=== PATIENT | female | born 1985 | race American Indian/Alaskan Native ===

== ENCOUNTER 2019-08-27 15:32 | Inpatient (IN) | payer MEDICAID ==
[2019-08-27] MEDS ORDERED: Magnesium Sulfate/Water 4 GM in Premix Bag 1 BAG IV ONE (16:04)
[2019-08-27] MEDS ORDERED: Labetalol 100 MG/20 ML MDV IVPUSH PRN (16:06)
[2019-08-27] MEDS ORDERED: Lactated Ringers 1,000 ML IV SCH ×3 (16:30→17:15)
[2019-08-27] MEDS ORDERED: Magnesium Sulfate/Water 2 GM in Premix Bag 1 BAG IV PRN (16:49)
[2019-08-27] MEDS ORDERED: Magnesium Sulfate/Water 50 ML ONE (16:52)
[2019-08-27] MEDS ORDERED: Sodium Chloride 0.9% 10 ML Syringe FLUSH PRN (17:05)
[2019-08-27] MEDS ORDERED: Tranexamic Acid 1,000 MG in Sodium Chloride 0.9% 100 ML IV PRN ×2 (17:05→20:12)
[2019-08-27] MEDS ORDERED: Citric Acid/Sodium Citrate Solution 30 ML Cup PO ONE (17:05)
[2019-08-27] MEDS ORDERED: ceFAZolin 2 GM in Premix Bag 1 BAG IV ONE (17:05)
[2019-08-27] MEDS: [UNRECOGNIZED DRUG - OTHER] IV SCH (17:08)
[2019-08-27] MEDS: MAGNESIUM SULFATE IV SCH (17:08)
[2019-08-27] MEDS ORDERED: Oxytocin/Normal Saline 30 UNIT/500 ML BAG IV SCH (17:15)
[2019-08-27] MEDS ORDERED: Oxytocin/Normal Saline 60 UNIT/1,000 ML BAG ONE (17:30)
[2019-08-27] MEDS ORDERED: Clindamycin Phosphate 900 MG in Sodium Chloride 0.9% 100 ML IV ONE (17:58)
--- NOTE | 2019-08-27 18:58 | HP ---
CHIEF COMPLAINT: The patient sent from clinic with elevated blood pressures. HISTORY OF PRESENT ILLNESS: The patient is a 3, para 2-1-0-3, currently at 38-0/7 weeks of her intrauterine . The patient presented to the clinic today for her routine obstetrical care appointment and was found to have elevated blood pressures, therefore, sent over to the hospital for further evaluation and management with knowledge that we may be proceeding with section. Upon arrival, blood pressure here 182/118, recheck 185/124. Once she was laid on her left side, and blood pressure taken with a large cuff on the right arm, it was 200/116. The patient is also complaining of blurry vision and headache. No chest pain. No shortness of breath. No right upper quadrant pain. She has had good movement. No vaginal bleeding or leakage of fluid. Uncertain if she has had any increased swelling. No history of preeclampsia in her prior pregnancies. First was done for twins at 28 weeks' gestation. Second was after 40 weeks' gestation, elective repeat. No complications noted with that surgery. OBSTETRICAL HISTORY: 09/16/2009 at 28 weeks' gestation, delivered male infants, one weighing 1361 g, the second one weighing 1247 g. Next 08/10/2011, delivered at 40 weeks' gestation, repeat , baby weighed 3175 g. LABS: She has GBS negative. Hepatitis C negative. Hepatitis B negative. Blood type A positive. Antibody screen positive for anti-Clayton A. RPR nonreactive. Rubella nonimmune. UDS positive for THC. Gonorrhea and chlamydia were negative. Urine culture was contaminated. Hemoglobin was 11.8, hematocrit 34.5, platelets 261. Wet prep was negative. Glucose tolerance test was normal. PAST MEDICAL HISTORY: 1. Chickenpox as a child. 2. LSIL on Pap smear in 2010. 3. Marijuana use. 4. delivery of twins. 5. Menarche at age 13. Menses every 30 days with 5 days of flow typically, but recently was undergoing evaluation for secondary amenorrhea. Only had one period in December since her last delivery and never got in to see the infant lead teacher. 6. History of Staphylococcus aureus infection. 7. Tattoos and ear piercings. Denies IV drug use and prior blood transfusions. 8. Tobacco abuse. PAST SURGICAL HISTORY: Primary low transverse section in 09/2009, elective repeat in 08/2011, laparoscopic cholecystectomy in 01/2012, LEEP of her cervix in 12/2009. FAMILY HISTORY: Mother alive with heart disease, high cholesterol, and hypertension. Father is . One brother and one sister, each alive and well. Maternal grandmother alive with COPD and lots of other medical problems. Remainder of the grandparents are . No history of any defects, cystic fibrosis, anesthesia reactions, bleeding or clotting disorders, or chromosomal abnormalities. SOCIAL HISTORY: The patient is down to smoking 3 to 4 cigarettes a day. Last use of marijuana was reported to be just prior to her first care visit. After that, she has had negative urine drug screen. She lives with her significant other, Tito, and their 3 children as well as Tito's mother. She is currently working at [employer]. Reportedly, he is healthy. REVIEW OF SYSTEMS: As noted under the HPI. No fever, chills, chest pain, shortness of breath, diarrhea, constipation, new skin rash or lesions, or other issues. OBJECTIVE: General: Pleasant well-appearing 34-year-old female, no acute at this time. She has had start of magnesium sulfate and also given 20 mg of IV labetalol. Vital Signs: Currently, pulse is 66, blood pressure 157/81. She is afebrile. Respiratory rate of 18. HEENT: Grossly unremarkable. Neck: Supple without adenopathy. Heart: Regular without murmur. Lungs: Clear to auscultation bilaterally with good chest expansion. Abdomen: Gravid, soft, nontender. Baby palpates vertex. [place] not showing any contractions. Baseline heart rate 135 beats per minute. Moderate beat-to- beat variability. Accelerations noted. Cervix deferred as it is irrelevant at this time. Extremities: Trace edema. No erythema or tenderness. Neurological: 1+ reflexes. No clonus. LABORATORY: Hemoglobin 12.4, platelets 223. BUN, creatinine, uric acid, AST, ALT, and LDH all negative. Urinalysis; greater than 300 of protein on dipstick, trace ketones, and occult blood. Urine drug screen is negative. Protein- creatinine ratio is still pending. ASSESSMENT: 1. Severe preeclampsia. 2. A 38-0/7 weeks' intrauterine . 3. History of sections x2. 4. History of delivery of twins. 5. Smoker. 6. History of THC abuse. 7. Late and insufficient care. 8. Blood type A positive, rubella immune, group B strep negative. 9. Positive red cell antibody for anti-Clayton A. 10.Amoxicillin allergy. PLAN: The patient will be taken to the operating room for a repeat section. She has been given appropriate consent. Details will be outlined in the operative report. We will be using clindamycin as our preoperative antibiotic because the reaction that she had with the amoxicillin is really uncertain, and we are already having enough risk factors. [facility] /[id number]
[2019-08-27 19:54] LABS: CHLORIDE,CL 104 mmol/L (101-111)
[2019-08-27] MEDS ORDERED: Acetaminophen 325 MG Tab PO PRN (20:12)
[2019-08-27] MEDS ORDERED: Methylergonovine 0.2 MG/1 ML Amp IM PRN (20:12)
[2019-08-27] MEDS ORDERED: Misoprostol 400 MCG (4 X 100 MCG TAB) RECTAL PRN (20:12)
[2019-08-27] MEDS ORDERED: ePHEDrine 50 MG/ML SDV IVPUSH PRN (20:12)
[2019-08-27] MEDS ORDERED: Naloxone 2 MG/2 ML Syringe IVPUSH PRN (20:12)
[2019-08-27] MEDS ORDERED: Ondansetron 4 MG/2 ML SDV IV PRN (20:12)
[2019-08-27] MEDS ORDERED: Acetaminophen/oxyCODONE 325-5 MG Tab PO PRN ×2 (20:12)
[2019-08-27] MEDS ORDERED: Carboprost Tromethamine 250 MCG/1 ML Amp IM PRN (20:12)
[2019-08-27] MEDS: Lactated Ringers 1,000 ML IV SCH (21:30)
[2019-08-27 21:48] LABS: SODIUM,NA 134 mmol/L (135-145)
[2019-08-27] MEDS ORDERED: Calcium Gluconate 10% 1 GM/10 ML SDV ONE (22:12)
[2019-08-27] MEDS: diphenhydrAMINE 50 MG/ML SDV IVPUSH PRN (22:18)
[2019-08-27] MEDS: Simethicone 80 MG Tab.Chew PO SCH (22:19)
[2019-08-27] MEDS: Docusate Sodium 100 MG Cap PO PRN (22:21)
[2019-08-27] MEDS ORDERED: Labetalol 100 MG Tab PO SCH (22:45)
[2019-08-27] MEDS: hydrALAZINE 25 MG Tab PO PRN (23:04)
[2019-08-28] MEDS ORDERED: Ketorolac 30 MG/ML SDV IVPUSH SCH
[2019-08-28] MEDS ORDERED: hydrALAZINE 20 MG/ML SDV IVPUSH ONE (00:26)
[2019-08-28] MEDS: Ketorolac 30 MG/ML SDV IVPUSH SCH ×3 (01:28→12:58)
--- NOTE | 2019-08-28 03:07 | DEL ---
DATE: 08/27/2019 PREPROCEDURE DIAGNOSES: 1. Severe preeclampsia. 2. Thirty-eight and 0/7 weeks' intrauterine . 3. History of section x2. 4. History of delivery twins. 5. Smoker. 6. History of THC abuse. 7. Late and insufficient care. 8. Blood type A positive, rubella immune, group B strep negative. 9. Positive red cell antibody for anti-Clayton A. 10.Amoxicillin allergy. BRIEF HISTORY: A 34-year-old patient with the above-listed diagnoses, presented to the clinic today for routine care visit, complaining of headache and blurry vision. My nurse found her blood pressures to be elevated and sent her directly to Labor and Delivery for further evaluation. Here, her pressures were in the 170s and 180s/100s, and a 3rd blood pressure was maximum at 200/116. She was given 20 mg of IV labetalol and started on magnesium sulfate while we awaited preeclampsia labs and ultimately she did rule in for preeclampsia with a protein-creatinine ratio of 0.74. Urine drug screen negative. Remainder of the other [facility] labs were negative, and initial hemoglobin normal at 12.4, and platelets normal 223. Preparations were made for section; however, with the patient's known anti-Clayton antibody, we were also trying to check with blood bank to make sure that we would be able to transfuse if necessary because of the abnormal antibody. CONSENT: Discussed with the patient and her significant other indications risks, benefits, and alternatives to repeat section for severe preeclampsia. Discussed with her the indications were that she needed to be delivered sooner rather than later in order to reduce risk of transition to eclampsia or suffering other consequences of the preeclampsia. Discussed with her risk of bleeding and potential for transfusion reaction, especially with her abnormal antibody, and that that may need to be withheld and she may need to be transferred to a higher level of care if we did not have the appropriate blood for her here. Discussed risk of injury to internal organs and adjacent structures including but not limited to bowel, bladder, fallopian tubes, ovaries, even potential injury to the baby and potential for complications for mother and/or baby that are unanticipated or require transfer to a higher level of care, even remote risk of . The patient consented and had her questions answered, and appropriate forms were signed and can be found on the chart. DETAILS OF PROCEDURE: The patient taken to the operating room and spinal anesthesia was obtained with some difficulty due to severe edema on the patient's back making landmarks difficult to palpate, but it was an appropriate spinal. She was laid in the dorsal supine position with leftward tilt and Bar[place] indwelling catheter was placed. She was prepped and draped in a normal sterile fashion and Pfannenstiel skin incision made at 1829 and carried down to the underlying fascia with cautery and dissection, being careful to control any bleeders. The fascia was incised in the midline with cautery and fascial incision extended bilaterally using Beebe scissors. Superior fascial edge was grasped with Priscilla's, tented up, and rectus muscles dissected off bluntly and with cautery. Inferior fascial edge then grasped with the Priscilla's, tented up, and rectus muscles dissected off inferiorly as well in similar fashion. The peritoneal muscles were then with blunt finger dissection and peritoneal cavity entered with blunt finger dissection and extended bilaterally with traction. Small thin adhesions noted to the uterus, which were taken down with cautery, and then Reji O retractor was placed and appropriate incision site over the prior uterine scar was made with scalpel, and this was extended using Theodore method. Amniotic fluid sac was then ruptured with Allis clamp and baby's head brought up through the hysterotomy site, followed thereafter by the remainder of the infant's body, and baby was delivered at 1838 hours. Uterus was then cleared of all clots and debris, and trailing membranes removed. Hysterotomy site closed with a running locked stitch of 0 Vicryl in the usual fashion and found to be hemostatic. Reji retractor was removed. Hemostasis of the hysterotomy site verified. Pericolic gutters were cleared of all clots and debris, and hysterotomy site reinspected and remained intact. The rectus muscles were brought together at the base with a loose [id number] stitch and then this layer was irrigated and cleaned. The fascial layer was then closed with a running stitch of 0 looped PDS in the usual fashion. Subcutaneous tissue was then irrigated, cleared of any clots and debris, and skin closed with cory. Notable complication during the procedure was, around time of delivery of the placenta, the patient had complaints of difficulties with breathing, chest pressure, feeling nausea, vomiting, and had developed rapid onset of ventricular bradycardia, with an ultimate rate of 22 at the lowest, it gradually increased back up to 33, and half an ampule of epinephrine was given. The heart rate after having been down for about 2 minutes, over the next minute the heart rate came up to around 50, and the second half of epinephrine was given, and the heart rate was then over 60 and holding well. During the initial bradycardia event, blood pressure was 116/68. After the 1 ampule total of epinephrine, the blood pressure was up at 137/117. The patient received some supplemental oxygen and reassurance. She ultimately was able to maintain her vital signs without any further interventions and was reporting less difficulties with tightness in her throat, chest pain, shortness of breath, and recovered quite well thereafter. ESTIMATED BLOOD LOSS: 400 mL. URINE OUTPUT: 180 mL, clear. FLUIDS: 2300 mL of lactated Ringer's, 450 mL of Pitocin. ADDITIONAL MEDICATIONS: 1 ampule of epinephrine, dose of Zofran, and 2 mg of Versed after her bradycardic event. COMPLICATIONS: Unexpected bradycardia, at this time no specific etiology has been found. We discussed multiple possible causes, however, most of those such as fluid embolism, pulmonary embolism, flash pulmonary edema, anaphylaxis all would cause tachycardia rather than bradycardia, leading suspicion at this time as an anesthetic reaction. DISPOSITION: The patient to be taken to the PACU. We will continue to monitor her very closely and get additional consultations as appropriate with [facility] in [place] and hospitalist here at the facility. FINDINGS: Normal internal female anatomy. Uterus, ovaries, and tubes. The baby is a term-appearing female with normal exam and Estonian spot noted. scores and weights are currently pending. [facility] /[id number]
[2019-08-28] MEDS: MAGNESIUM SULFATE IV SCH ×2 (03:09→13:07)
[2019-08-28] MEDS: [UNRECOGNIZED DRUG - OTHER] IV SCH ×2 (03:09→13:07)
[2019-08-28] MEDS: Lactated Ringers 1,000 ML IV SCH ×2 (03:12→20:06)
--- NOTE | 2019-08-28 03:30 | CONS ---
SERVICE DATE: 08/27/2019 REASON FOR CONSULT: Bradycardia, hypotension. HISTORY OF PRESENTING ILLNESS: Mrs. Varinder Krishnamurthy is a 34-year-old female with no significant past medical history. She is a 3, para 2-1-0-3, currently at 38-0/7 weeks of intrauterine . The patient had x2 in the past, a twin first time and then a second boy both of which had C-sections in the past, but no complications noted from her previous . She was initially evaluated in the clinic today for obstetric care and was noted to have preeclampsia with uncontrolled hypertension and so the patient was admitted and is status post . During the surgical procedure, the patient had a brief episode of hypotension and bradycardia where her heart rate was down to 20 to 22 for 2 to 3 minutes and then her blood pressure was down to 70 systolic. The patient was given half an amp of epinephrine after which her heart rate slightly improved, then she received another half of epinephrine after which her heart rate improved and blood pressure improved and since then she is able to sustain her heart rate and blood pressure. The patient received IV labetalol 3 hours prior to onset of the symptoms for controlling her blood pressure and so she received magnesium sulfate during this procedure for better control of the blood pressure. Postprocedure, the patient remains hemodynamically stable. The patient claims that during the surgical procedure, she felt like a little short of breath, a blockage in her throat, but for a brief time she also felt palpitations but denied any loss of consciousness, denied any dizziness, denied any similar complaints in the past. At this time, the patient denies any ongoing chest pains. No shortness of breath. No abdominal pain. No nausea. No vomiting. No diarrhea. No fevers or chills in the last few days. The patient did not have any complications with her C-sections in the past. The patient denied any history of chest pains on exertion. No history of dyspnea on exertion. No history of orthopnea or paroxysmal nocturnal dyspnea. The patient denied any history of hematemesis, hematochezia, or melenic stools. Normal bowel and bladder habits otherwise. REVIEW OF SYSTEMS: A complete review of system including skin, ear, nose and throat, cardiovascular system, respiratory system, gastrointestinal system, genitourinary system, hematology, oncology, neurology were all evaluated and were negative except for the above-said notes. PAST MEDICAL HISTORY: Significant for delivery, history of marijuana use, history of chickenpox when she was a kid, secondary amenorrhea, and Staph aureus infection PAST SURGICAL HISTORY: Significant for C-sections low transverse x2, laparoscopy, cholecystectomy, and vaginal cervical LEEP treatment. FAMILY HISTORY: Significant for heart disease, hypertension, and high cholesterol in her mother; and COPD in her maternal grandmother. SOCIAL HISTORY: The patient smokes around 3 to 4 cigarettes a day. No history of alcohol intake. ALLERGIES: The patient noted to have allergies to amoxicillin. HOME MEDICATIONS: Include none. PHYSICAL EXAMINATION: Vital Signs: Blood pressure 120/70, respiratory rate of 14, heart rate of 62. Temperature of 97.2, saturating at 97%. General Appearance: The patient is well oriented to time, place, and person. Follows commands spontaneously. Cardiovascular System: S1, S2 heard with normal intensity. No gallops. Respiratory: Clear to auscultation bilaterally. No wheeze. No crepitations. Abdomen: Soft. Bowel sounds positive. Tenderness from the surgery. No rigidity. No guarding. Extremities: No edema bilateral lower extremities. Neurology: No gross focal neurological deficits. LABORATORY DATA: Labs reviewed. WBC 7, hemoglobin 12.4, hematocrit 37.4, platelet count 223. Sodium 136, potassium 3.8, chloride 104, bicarb 25, BUN 9, creatinine 0.6, glucose 93, magnesium 1.8, AST 16, ALT 13, alkaline phosphatase 191, lactate dehydrogenase 132. Urinalysis: Urine protein greater than 300, negative for leukocytes, negative for nitrites, urine toxicology screen negative. ASSESSMENT: 1. Brief episode of hypotension with bradycardia. 2. Preeclampsia. 3. Status post . PLAN: Brief episode of hypotension and bradycardia. The patient was noted to have a bradycardia with heart rate dropping down to 20s and blood pressure systolic dropping down to 70s, she required an amp of epinephrine to regain the blood pressure. Bradycardia and hypotension lasted only for a brief time around 2 to 3 minutes. currently her blood pressure and heart rate seems to be stabilized. She denies any ongoing chest pains or shortness of breath. Unsure if this is a medication adverse event either with magnesium or with anesthetic agent. She does not have any cardiovascular complaints at this time. Ordered for EKG and a 2D echocardiogram. We will order for chest x-ray and we will follow with the reports. Closely monitor on the Telemetry Unit. Avoid any hypotensive episodes. Keep her hydrated with IV fluids. Maintain euvolemic status. We will closely follow the patient. Unsure if the patient had any vagal episode leading to this bradycardia and hypotension. The patient denied any history of similar complaints in the past. Did not have any complications with C-sections in the past. She denies any chest pains or tachycardia at this time. No indication for PE on vital signs and symptoms. low index for PE. [facility] /[id number]
[2019-08-28] MEDS: diphenhydrAMINE 50 MG/ML SDV IVPUSH PRN (04:12)
[2019-08-28] MEDS: hydrALAZINE 25 MG Tab PO PRN (07:41)
--- NOTE | 2019-08-28 08:33 | PCM.PNPP ---
- General Info Date of Service: 08/28/19 Admission Dx/Problem (Free Text): Post Day Number 1 Patient: Varinder Krishnamurthy Admit Date: 08/27/19 Today's Date: 08/28/19 Post operative Day #1 for rLTCS Subjective: Patient is post op day one from her . She reports her lochia is moderate. She is bottle feeding. She has good. Her nathan has not been removed. She has not been out of bed. She has started advancing her diet. She has no complaints. No acute events overnight, nurses report she has had some labile blood pressures in the 130s over 100s. Patient denies any headaches, blurred vision, abdominal pain, chest pain or shortness of breath. Objective: Vitals reviewed see below General: alert and oriented, no acute distress Lungs: CTAB CV: Heart RRR. Her lower limbs are nontender and have trace edema. Patient has been wearing SCDs Abdomen: Post-. Her incision site is CDI, without cory. Her uterus is firm, nontender at the level of the umbilicus. Skin: is warm and dry, no visible lesions, well perfused Lab Results: RPR: non reactive Rubella: immune GBS:negative Hbs: negative Assessment/Plan: Patient is stable and comfortable she is postoperative day number one status post rLTCS Will continue hydralazine 25mg q 6hrs PO for elevated blood pressures. Continue magnesium for 24 hours post for severe preeclampsia Her postoperative hemoglobin is 12.5. This is not consistent with post operative anemia. She does not have symptoms of anemia. Will closely monitor her I/Os and decrease IVF's when tolerating good PO intake , after this the nathan can be removed when she is up and ambulating well and able to make it relatively pain free to the bathroom. Pain control will be monitored closely along with her incision site for any signs of infection. Her diet will be advanced when she is feeling able to take PO intake with active bowel sounds and passing gas. - Patient Data Vital Signs - Most Recent: Last Vital Signs Temp 96.5 F 08/28/19 06:27 Pulse 80 08/28/19 06:52 Resp 16 08/28/19 02:00 BP 139/100 H 08/28/19 07:41 Pulse Ox 99 08/28/19 06:36 Weight - Most Recent: 239 lb I&O - Last 24 Hours: Intake & Output 08/27/19 08/28/19 08/28/19 22:59 06:59 14:59 Intake Total 339 2681 Output Total 265 1700 Balance 74 981 Lab Results - Last 24 Hours: Laboratory Results - last 24 hr 08/27/19 08/27/19 08/27/19 Range/Units 15:49 16:00 16:00 WBC 7.0 (5.0-10.0) 10^3/uL RBC 4.29 (4.2-5.4) 10^6/uL Hgb 12.4 (12.0-16.0) g/dL Hct 37.4 (37.0-47.0) % MCV 87.2 (80-100) fL MCH 28.9 (27.0-34.0) pg MCHC 33.2 (33.0-35.0) g/dL Plt Count 223 D (150-450) 10^3/uL Sodium (135-145) mmol/L Potassium (3.6-5.0) mmol/L Chloride (101-111) mmol/L Carbon Dioxide (21.0-31.0) mmol/L Anion Gap BUN 9 (7-18) mg/dL Creatinine 0.6 (0.6-1.3) mg/dL Est Cr Clr Drug Dosing TNP Estimated GFR (MDRD) > 60 BUN/Creatinine Ratio Glucose (74-105) mg/dL Uric Acid 4.3 (2.6-7.2) mg/dL Calcium (8.4-10.2) mg/dl Magnesium (1.8-2.5) mg/dL Total Bilirubin (0.2-1.0) mg/dL AST 15 (10-42) IU/L ALT 13 (10-60) IU/L Alkaline Phosphatase (42-121) IU/L Lactate Dehydrogenase 132 (91-180) IU/L Total Protein (6.7-8.2) g/dl Albumin (3.2-5.5) g/dl Globulin Albumin/Globulin Ratio Urine Color (YELLOW) Urine Appearance (CLEAR) Urine pH (5.0-9.0) Ur Specific [place] (1.005-1.030) Urine Protein (NEGATIVE) Urine Glucose (UA) (NEGATIVE) Urine Ketones (NEGATIVE) Urine Occult Blood (NEGATIVE) Urine Nitrite (NEGATIVE) Urine Bilirubin (NEGATIVE) Urine Urobilinogen (0.2-1.0) mg/dL Ur Leukocyte Esterase (NEGATIVE) Ur Random Creatinine 257 mg/dL U Random Total Protein 192 H (0.00-9.9) mg/dL Protein/Creatinin Ratio 0.74 Urine Opiates Screen (NEGATIVE) Ur Oxycodone Screen (NEGATIVE) Urine Methadone Screen (NEGATIVE) Ur Barbiturates Screen (NEGATIVE) U Tricyclic Antidepress (NEGATIVE) Ur Phencyclidine Scrn (NEGATIVE) Ur Amphetamine Screen (NEGATIVE) U Methamphetamines Scrn (NEGATIVE) Urine MDMA Screen (NEGATIVE) U Benzodiazepines Scrn (NEGATIVE) Urine Cocaine Screen (NEGATIVE) U Marijuana (THC) Screen (NEGATIVE) Blood Type Gel Antibody Screen Crossmatch 08/27/19 08/27/19 08/27/19 Range/Units 16:00 16:10 16:10 WBC (5.0-10.0) 10^3/uL RBC (4.2-5.4) 10^6/uL Hgb (12.0-16.0) g/dL Hct (37.0-47.0) % MCV (80-100) fL MCH (27.0-34.0) pg MCHC (33.0-35.0) g/dL Plt Count (150-450) 10^3/uL Sodium (135-145) mmol/L Potassium (3.6-5.0) mmol/L Chloride (101-111) mmol/L Carbon Dioxide (21.0-31.0) mmol/L Anion Gap BUN (7-18) mg/dL Creatinine (0.6-1.3) mg/dL Est Cr Clr Drug Dosing Estimated GFR (MDRD) BUN/Creatinine Ratio Glucose (74-105) mg/dL Uric Acid (2.6-7.2) mg/dL Calcium (8.4-10.2) mg/dl Magnesium (1.8-2.5) mg/dL Total Bilirubin (0.2-1.0) mg/dL AST (10-42) IU/L ALT (10-60) IU/L Alkaline Phosphatase (42-121) IU/L Lactate Dehydrogenase (91-180) IU/L Total Protein (6.7-8.2) g/dl Albumin (3.2-5.5) g/dl Globulin Albumin/Globulin Ratio Urine Color Dark yellow (YELLOW) Urine Appearance Slightly cloudy (CLEAR) Urine pH 6.0 (5.0-9.0) Ur Specific [place] >= 1.030 (1.005-1.030) Urine Protein >=300 H (NEGATIVE) Urine Glucose (UA) Negative (NEGATIVE) Urine Ketones Trace H (NEGATIVE) Urine Occult Blood Trace-intact H (NEGATIVE) Urine Nitrite Negative (NEGATIVE) Urine Bilirubin Small H (NEGATIVE) Urine Urobilinogen 1.0 (0.2-1.0) mg/dL Ur Leukocyte Esterase Negative (NEGATIVE) Ur Random Creatinine mg/dL U Random Total Protein (0.00-9.9) mg/dL Protein/Creatinin Ratio Urine Opiates Screen Negative (NEGATIVE) Ur Oxycodone Screen Negative (NEGATIVE) Urine Methadone Screen Negative (NEGATIVE) Ur Barbiturates Screen Negative (NEGATIVE) U Tricyclic Antidepress Negative (NEGATIVE) Ur Phencyclidine Scrn Negative (NEGATIVE) Ur Amphetamine Screen Negative (NEGATIVE) U Methamphetamines Scrn Negative (NEGATIVE) Urine MDMA Screen Negative (NEGATIVE) U Benzodiazepines Scrn Negative (NEGATIVE) Urine Cocaine Screen Negative (NEGATIVE) U Marijuana (THC) Screen Negative (NEGATIVE) Blood Type A POSITIVE Gel Antibody Screen Positive Crossmatch See Detail 08/27/19 08/27/19 08/28/19 Range/Units 21:12 21:12 06:15 WBC 13.1 H 11.3 H (5.0-10.0) 10^3/uL RBC 3.95 L 4.35 (4.2-5.4) 10^6/uL Hgb 11.4 L 12.5 (12.0-16.0) g/dL Hct 34.7 L 37.9 (37.0-47.0) % MCV 87.8 87.1 (80-100) fL MCH 28.9 28.7 (27.0-34.0) pg MCHC 32.9 L 33.0 (33.0-35.0) g/dL Plt Count 212 251 (150-450) 10^3/uL Sodium 134 L (135-145) mmol/L Potassium 4.0 (3.6-5.0) mmol/L Chloride 104 (101-111) mmol/L Carbon Dioxide 22.0 (21.0-31.0) mmol/L Anion Gap 12.0 BUN 7 (7-18) mg/dL Creatinine 0.6 (0.6-1.3) mg/dL Est Cr Clr Drug Dosing 123.68 Estimated GFR (MDRD) > 60 BUN/Creatinine Ratio 11.66 Glucose 82 (74-105) mg/dL Uric Acid (2.6-7.2) mg/dL Calcium 7.6 L (8.4-10.2) mg/dl Magnesium 4.0 H (1.8-2.5) mg/dL Total Bilirubin 0.3 (0.2-1.0) mg/dL AST 19 (10-42) IU/L ALT 14 (10-60) IU/L Alkaline Phosphatase 166 H (42-121) IU/L Lactate Dehydrogenase (91-180) IU/L Total Protein 5.5 L (6.7-8.2) g/dl Albumin 2.1 L (3.2-5.5) g/dl Globulin 3.4 Albumin/Globulin Ratio 0.62 Urine Color (YELLOW) Urine Appearance (CLEAR) Urine pH (5.0-9.0) Ur Specific [place] (1.005-1.030) Urine Protein (NEGATIVE) Urine Glucose (UA) (NEGATIVE) Urine Ketones (NEGATIVE) Urine Occult Blood (NEGATIVE) Urine Nitrite (NEGATIVE) Urine Bilirubin (NEGATIVE) Urine Urobilinogen (0.2-1.0) mg/dL Ur Leukocyte Esterase (NEGATIVE) Ur Random Creatinine mg/dL U Random Total Protein (0.00-9.9) mg/dL Protein/Creatinin Ratio Urine Opiates Screen (NEGATIVE) Ur Oxycodone Screen (NEGATIVE) Urine Methadone Screen (NEGATIVE) Ur Barbiturates Screen (NEGATIVE) U Tricyclic Antidepress (NEGATIVE) Ur Phencyclidine Scrn (NEGATIVE) Ur Amphetamine Screen (NEGATIVE) U Methamphetamines Scrn (NEGATIVE) Urine MDMA Screen (NEGATIVE) U Benzodiazepines Scrn (NEGATIVE) Urine Cocaine Screen (NEGATIVE) U Marijuana (THC) Screen (NEGATIVE) Blood Type Gel Antibody Screen Crossmatch 08/28/19 Range/Units 06:15 WBC (5.0-10.0) 10^3/uL RBC (4.2-5.4) 10^6/uL Hgb (12.0-16.0) g/dL Hct (37.0-47.0) % MCV (80-100) fL MCH (27.0-34.0) pg MCHC (33.0-35.0) g/dL Plt Count (150-450) 10^3/uL Sodium (135-145) mmol/L Potassium 4.3 (3.6-5.0) mmol/L Chloride (101-111) mmol/L Carbon Dioxide (21.0-31.0) mmol/L Anion Gap BUN (7-18) mg/dL Creatinine (0.6-1.3) mg/dL Est Cr Clr Drug Dosing Estimated GFR (MDRD) BUN/Creatinine Ratio Glucose (74-105) mg/dL Uric Acid (2.6-7.2) mg/dL Calcium 7.6 L (8.4-10.2) mg/dl Magnesium 5.8 H (1.8-2.5) mg/dL Total Bilirubin (0.2-1.0) mg/dL AST (10-42) IU/L ALT (10-60) IU/L Alkaline Phosphatase (42-121) IU/L Lactate Dehydrogenase (91-180) IU/L Total Protein (6.7-8.2) g/dl Albumin (3.2-5.5) g/dl Globulin Albumin/Globulin Ratio Urine Color (YELLOW) Urine Appearance (CLEAR) Urine pH (5.0-9.0) Ur Specific [place] (1.005-1.030) Urine Protein (NEGATIVE) Urine Glucose (UA) (NEGATIVE) Urine Ketones (NEGATIVE) Urine Occult Blood (NEGATIVE) Urine Nitrite (NEGATIVE) Urine Bilirubin (NEGATIVE) Urine Urobilinogen (0.2-1.0) mg/dL Ur Leukocyte Esterase (NEGATIVE) Ur Random Creatinine mg/dL U Random Total Protein (0.00-9.9) mg/dL Protein/Creatinin Ratio Urine Opiates Screen (NEGATIVE) Ur Oxycodone Screen (NEGATIVE) Urine Methadone Screen (NEGATIVE) Ur Barbiturates Screen (NEGATIVE) U Tricyclic Antidepress (NEGATIVE) Ur Phencyclidine Scrn (NEGATIVE) Ur Amphetamine Screen (NEGATIVE) U Methamphetamines Scrn (NEGATIVE) Urine MDMA Screen (NEGATIVE) U Benzodiazepines Scrn (NEGATIVE) Urine Cocaine Screen (NEGATIVE) U Marijuana (THC) Screen (NEGATIVE) Blood Type Gel Antibody Screen Crossmatch Med Orders - Current: Current Medications Acetaminophen (Tylenol) 650 mg PO Q6H PRN PRN Reason: mild pain or fever Carboprost Tromethamine (Hemabate Ds) 250 mcg IM ONETIME PRN PRN Reason: Bleeding Diphenhydramine HCl (Benadryl) 25 mg IVPUSH Q6H PRN PRN Reason: Itching or Nausea Last Admin: 08/28/19 04:12 Dose: 25 mg Docusate Sodium (Colace) 100 mg PO Q12H PRN PRN Reason: Constipation Last Admin: 08/27/19 22:21 Dose: 100 mg Ephedrine Sulfate (Ephedrine Sulfate) 5 mg IVPUSH SEECOMMENT PRN PRN Reason: Other Hydralazine HCl (Apresoline) 25 mg PO Q6H PRN PRN Reason: Hypertension Last Admin: 08/28/19 07:41 Dose: 25 mg Magnesium Sulfate (Magnesium Sulfate In Water Premix) 20 gm in 500 mls @ 0 mls/ hr IV TITRATE [facility] Last Admin: 08/28/19 03:09 Dose: 50 mls/hr Magnesium Sulfate 2 gm/ Premix 50 mls @ 25 mls/hr IV ONETIME PRN PRN Reason: blood pressure Tranexamic Acid 1,000 mg/ (Sodium Chloride) 110 mls @ 660 mls/hr IV ONETIME PRN PRN Reason: Bleeding Tranexamic Acid 1,000 mg/ (Sodium Chloride) 110 mls @ 660 mls/hr IV ONETIME PRN PRN Reason: Bleeding Lactated Ringer's (Ringers, Lactated) 1,000 mls @ 125 mls/hr IV ASDIRECTED [facility] Last Admin: 08/28/19 03:12 Dose: 125 mls/hr Ibuprofen (Motrin) 800 mg PO Q8H PRN PRN Reason: mild pain or fever Ketorolac Tromethamine (Toradol) 15 mg IVPUSH Q6H [facility] Stop: 08/28/19 13:01 Last Admin: 08/28/19 07:35 Dose: 15 mg Methylergonovine Maleate (Methergine) 0.2 mg IM ONETIME PRN PRN Reason: Excessive Vaginal Bleeding Misoprostol (Cytotec) 800 mcg RECTAL ASDIRECTED PRN PRN Reason: Excessive bleeding Naloxone HCl (Narcan) 0.1 mg IVPUSH SEECOMMENT PRN PRN Reason: Respiratory Depression Ondansetron HCl (Zofran) 4 mg IV Q4H PRN PRN Reason: Nausea/Vomiting Oxycodone/Acetaminophen (Percocet 325-5 Mg) 1 tab PO Q4H PRN PRN Reason: Pain (moderate 4-6) Oxycodone/Acetaminophen (Percocet 325-5 Mg) 2 tab PO Q4H PRN PRN Reason: Pain (moderate 4-6) Prenat Multivit/[place]/Iron/Folic Ac ( Plus Iron) 1 each PO DAILY [facility] Simethicone (Simethicone) 160 mg PO QID [facility] Last Admin: 08/27/19 22:19 Dose: 160 mg Sodium Chloride (Saline Flush) 10 ml FLUSH ASDIRECTED PRN PRN Reason: Keep Vein Open Discontinued Medications Calcium Gluconate (Calcium Gluconate) Confirm Administered Dose 1 gm .ROUTE .STK -MED ONE Stop: 08/27/19 22:13 Citric Acid/Sodium Citrate (Bicitra Solution) 30 ml PO ONETIME ONE Stop: 08/27/19 17:06 Last Admin: 08/27/19 17:33 Dose: 30 ml Hydralazine HCl (Apresoline) 10 mg IVPUSH ONETIME ONE Stop: 08/28/19 00:27 Last Admin: 08/28/19 00:42 Dose: 10 mg Magnesium Sulfate 4 gm/ Premix 100 mls @ 300 mls/hr IV ONETIME ONE Stop: 08/27/19 16:23 Last Admin: 08/27/19 16:19 Dose: 300 mls/hr Lactated Ringer's (Ringers, Lactated) 1,000 mls @ 125 mls/hr IV ASDIRECTED [facility] Last Admin: 08/27/19 16:57 Dose: 125 mls/hr Magnesium Sulfate (Magnesium Sulfate In Water Premix) Confirm Administered Dose 50 mls @ as directed .ROUTE .STK-MED ONE Stop: 08/27/19 16:53 Last Admin: 08/27/19 16:56 Dose: 300 mls/hr Cefazolin Sodium/Dextrose 2 gm (/ Premix) 50 mls @ 100 mls/hr IV ONETIME ONE Stop: 08/27/19 17:34 Last Admin: 08/27/19 17:45 Dose: 100 mls/hr Oxytocin/Sodium Chloride (Pitocin In Ns 30 Unit/500 Ml) 30 unit in 500 mls @ 2 mls/hr IV TITRATE [facility]; Protocol Last Titration: 08/27/19 21:34 Dose: 0 mls/hr Lactated Ringer's (Ringers, Lactated) 1,000 mls @ 125 mls/hr IV ASDIRECTED [facility] Lactated Ringer's (Ringers, Lactated) 1,000 mls @ 500 mls/hr IV .BOLUS [facility] Oxytocin/Sodium Chloride (Pitocin In Ns 30 Unit/500 Ml) Confirm Administered Dose 60 unit in 1,000 mls @ as directed .ROUTE .STK-MED ONE Stop: 08/27/19 17:31 Clindamycin Phosphate 900 mg/ (Sodium Chloride) 106 mls @ 200 mls/hr IV ONETIME ONE Stop: 08/27/19 18:29 Last Admin: 08/28/19 02:08 Dose: Not Given Ibuprofen (Motrin) 800 mg PO Q8H PRN PRN Reason: mild pain or fever Ketorolac Tromethamine (Toradol) 15 mg IVPUSH Q6H [facility] Stop: 08/28/19 12:01 Labetalol HCl (Normodyne) 20 mg IVPUSH ONETIME PRN; Protocol PRN Reason: blood pressure Last Admin: 08/27/19 16:13 Dose: 20 mg Labetalol HCl (Normodyne) 100 mg PO BID [facility] - Problem List & Annotations (1) S/P repeat low transverse SNOMED Code(s): 998171589, 39414910, 322101230, [id number], 819640828 Code(s): Z98.891 - HISTORY OF UTERINE SCAR FROM PREVIOUS SURGERY Status: Acute Current Visit: Yes (2) Severe pre-eclampsia SNOMED Code(s): 76706708 Code(s): O14.10 - SEVERE PRE-ECLAMPSIA, UNSPECIFIED TRIMESTER Status: Acute Current Visit: Yes - Problem List Review Problem List Initiated/Reviewed/Updated: Yes
[2019-08-28] MEDS: Simethicone 80 MG Tab.Chew PO SCH ×4 (10:12→20:40)
[2019-08-28] MEDS: Docusate Sodium 100 MG Cap PO PRN (12:58)
[2019-08-28] MEDS: Prenatal Multivitamin with Calcium/Folic Acid/Iron Tab PO SCH (13:03)
[2019-08-28] MEDS ORDERED: Oxytocin/Normal Saline 30 UNIT/500 ML BAG IV ONE (13:21)
[2019-08-28] MEDS ORDERED: hydrALAZINE 25 MG Tab PO SCH (14:00)
--- NOTE | 2019-08-28 14:02 | PN ---
DATE: 08/28/2019 SUBJECTIVE: Ms. Varinder Krishnamurthy is a 34-year-old female, who recently underwent , postop day of 1, and had a complication during the procedure where she had hypotension and bradycardia during the procedure. Postprocedure, the patient remains hemodynamically stable. For the last 24 hours, the patient denies any ongoing chest pain. No shortness of breath. Only some mild abdominal discomfort from the . Denies any nausea, vomiting, or diarrhea. Denies any palpitations. REVIEW OF SYSTEMS: Cardiovascular, respiratory, gastrointestinal, neurology, constitutional were all evaluated. PHYSICAL EXAMINATION: Vital Signs: Temperature of 96.5, pulse of 80, blood pressure of 139/100, saturating at 99% on room air. General Appearance: The patient is well oriented to time, place, and person. Follows commands spontaneously. Cardiovascular System: S1 and S2 heard with normal intensity. Respiratory System: Clear to auscultation bilaterally. No wheeze. No crepitations. Abdomen: Soft. Bowel sounds positive. Extremities: No edema in bilateral lower extremities. LABORATORY DATA: Potassium 4.3, calcium 7.6, albumin 2.1. Corrected calcium within normal limits. Magnesium 5.8. ASSESSMENT: 1. A brief episode of hypotension and bradycardia during the surgical procedure. 2. Severe preeclampsia, resolved. 3. Status post section, postop day 1. PLAN: 1. A brief episode of hypotension and bradycardia. This lasted only for 2-3 minutes. Exact etiology not clear. Could be resulting from drug adverse event. The patient was receiving IV magnesium sulfate, which could potentially cause a hypotension also, and the patient did receive labetalol prior to the surgery for her preeclampsia, unsure that led to her bradycardia too, but the patient had a chest x-ray which is within normal limits. She had a 12-lead EKG in her postoperative period, which did not show any acute lesion. The patient remained in normal sinus rhythm on the telemetry unit. She did not have any ST elevation or ST depression. No marcial blockage noted at this time. Her p.r.n. interval is slightly elevated up to 206, but not significant at this time. The patient is continued on magnesium. We will continue to monitor on the Telemetry Unit. 2. Hypertension. The patient noted to have elevated blood pressure. Use hydralazine as needed. She did not have any history of hypertension in the past. Avoid any beta-flora secondary to her bradycardia. 3. The patient had a 2D echocardiogram in the postoperative period. Official report is still pending, but as per discussion, the patient did not have any acute changes on her 2D echocardiogram. We will follow the official report. 4. The patient remains medically stable at this juncture. [facility] /[id number]
[2019-08-28] MEDS ORDERED: Magnesium Sulfate/Water 20 GM/500 ML BAG IV SCH (16:00)
[2019-08-28] MEDS ORDERED: Hydrochlorothiazide 25 MG Tab PO SCH (16:15)
[2019-08-28] MEDS ORDERED: Gabapentin 100 MG Cap ONE (17:48)
[2019-08-28] MEDS: hydrALAZINE 20 MG/ML SDV IVPUSH PRN ×2 (17:57→19:16)
[2019-08-28] MEDS ORDERED: hydrALAZINE 20 MG/ML SDV IVPUSH PRN (19:28)
[2019-08-28] MEDS ORDERED: amLODIPine 5 MG Tab PO SCH (19:30)
[2019-08-28] MEDS ORDERED: Magnesium Sulfate/Water 100 ML IV ONE (19:49)
[2019-08-28] MEDS: hydrALAZINE 25 MG Tab PO SCH (19:57)
[2019-08-28] MEDS ORDERED: Ibuprofen 800 MG Tab PO PRN (20:00)
[2019-08-28] MEDS: Magnesium Sulfate/Water 20 GM/500 ML BAG IV SCH (20:34)
[2019-08-28] MEDS: Ibuprofen 800 MG Tab PO PRN (20:40)
[2019-08-29] MEDS: hydrALAZINE 25 MG Tab PO SCH (03:35)
[2019-08-29] MEDS ORDERED: hydrALAZINE 25 MG Tab PO SCH ×2 (04:57→09:00)
[2019-08-29] MEDS: Ibuprofen 800 MG Tab PO PRN (05:14)
[2019-08-29] MEDS ORDERED: Lisinopril 10 MG Tab PO ONE (05:25)
[2019-08-29] MEDS: Magnesium Sulfate/Water 20 GM/500 ML BAG IV SCH (06:46)
[2019-08-29 06:48] LABS: ANION GAP 11.8; CHLORIDE,CL 100 mmol/L (101-111); SODIUM,NA 135 mmol/L (135-145)
[2019-08-29] MEDS: Simethicone 80 MG Tab.Chew PO SCH (09:31)
[2019-08-29] MEDS: Prenatal Multivitamin with Calcium/Folic Acid/Iron Tab PO SCH (09:31)
--- NOTE | 2019-08-29 09:34 | PCM.DCSUM1 ---
Discharge Summary - Hospital Course HPI Initial Comments: OB Discharge Summary Patient ID: Varinder Krishnamurthy Date: 08/29/19 Admit date: 08/27/19 Discharge date: 08/29/19 Admitting Physician: Dr. Garay Discharging Physician: Dr. Garay Admission Diagnoses: Severe Preeclampsia at 38w0d Summary of Hospital Course: Patient is a 34 yo who presented to labor and delivery on 08/27/19 for severe preeclampisa. She underwent a rLTCS delivery and delivered a viable female weighing 2865 grams with Apgars of 8 and 9 at 1 and 5 minutes respectively. EBL was 400 mL. during her C section she had an episode of bradycardia down to 22 for 2 minutes, which responded to epinephrine. pulse has been stable since post op recovery. hemoglobin was 12.5 gm/dL. She was not started on oral iron supplementation. Patient had complicated course by persistently elevated blood pressures. She was kept on Magnesium for 24 hours post and after she was taken off, her blood pressures continued to increase despite treatment with oral and IV hydralazine, oral hydrochlorothiazide and lisinopril. Her IV magnesium was restarted on 08/28 at 7:30 pm. On post op day 2 she developed a new systolic heart murmur. With elevated blood pressures in the setting of a new heart murmur the decision was made to transfer care to Dr. Salazar (OBGYN) at [facility] for further evaluation with a cardiology consult. Blood type: A negative, antibody positive for anti Fany, Rubella immune. Discharge Exam: General: tired appearing, no acute distress HEENT: PERRL Heart: systolic heart murmur Respiratory: CTAB Abdomen: incision CDI with cory, uterus at level of umbilicus, mildly tender Extremities: trace edema, reflexes 1+ Discharge (or Final) Diagnoses: 1. Severe preeclampsia 2. Status post Intrauterine at 38w0d 3. s/p rLTCS on 08/27/19 4. Late and insufficient care 5. Hx of tobacco and THC abuse Discharge Details: Admission Condition: Poor Discharged Condition: Poor Disposition: Acute hospital - Discharge Data Discharge Date: 08/29/19 Discharge Disposition: DC/Tfer to Acute Hospital 02 Condition: Poor - Referral to Home Health Primary Care Physician: Winifred Neal MD - Discharge Diagnosis/Problem(s) (1) S/P repeat low transverse SNOMED Code(s): 308845830, [id number], [id number], [id number], [id number] ICD Code: Z98.891 - HISTORY OF UTERINE SCAR FROM PREVIOUS SURGERY Status: Acute Current Visit: Yes (2) Severe pre-eclampsia SNOMED Code(s): 48757147 ICD Code: O14.10 - SEVERE PRE-ECLAMPSIA, UNSPECIFIED TRIMESTER Status: Acute Current Visit: Yes - Patient Summary/Data Consults: Consultations 08/27/19 19:39 Consult to Physician [CONS] Urgent - Discharge Plan *PRESCRIPTION DRUG MONITORING PROGRAM REVIEWED*: Not Applicable *COPY OF PRESCRIPTION DRUG MONITORING REPORT IN PATIENT MAYA: Not Applicable - Discharge Summary/Plan Comment DC Time >30 min.: Yes - Patient Data Vitals - Most Recent: Last Vital Signs Temp 98.7 F 08/29/19 07:45 Pulse 88 08/29/19 08:00 Resp 16 08/29/19 06:45 BP 168/95 H 08/29/19 08:00 Pulse Ox 95 08/29/19 06:45 Weight - Most Recent: 239 lb I&O - Last 24 hours: Intake & Output 08/28/19 08/29/19 08/29/19 22:59 06:59 14:59 Intake Total 2538 500 Output Total 4300 4275 550 Balance -1762 -4275 -50 Lab Results - Last 24 hrs: Laboratory Results - last 24 hr 08/28/19 08/29/19 08/29/19 Range/Units 12:58 00:01 06:08 WBC (5.0-10.0) 10^3/uL RBC (4.2-5.4) 10^6/uL Hgb (12.0-16.0) g/dL Hct (37.0-47.0) % MCV (80-100) fL MCH (27.0-34.0) pg MCHC (33.0-35.0) g/dL Plt Count (150-450) 10^3/uL Sodium 135 (135-145) mmol/L Potassium 3.8 (3.6-5.0) mmol/L Chloride 100 L (101-111) mmol/L Carbon Dioxide 27.0 (21.0-31.0) mmol/L Anion Gap 11.8 BUN 6 L (7-18) mg/dL Creatinine 0.6 (0.6-1.3) mg/dL Est Cr Clr Drug Dosing 123.68 mL/min Estimated GFR (MDRD) > 60 BUN/Creatinine Ratio 10.00 Glucose 83 (74-105) mg/dL Calcium 7.3 L (8.4-10.2) mg/dl Magnesium 6.2 H 6.0 H 5.7 H (1.8-2.5) mg/dL Total Bilirubin 0.4 (0.2-1.0) mg/dL AST 24 (10-42) IU/L ALT 17 (10-60) IU/L Alkaline Phosphatase 174 H (42-121) IU/L Total Protein 6.1 L (6.7-8.2) g/dl Albumin 2.4 L (3.2-5.5) g/dl Globulin 3.7 Albumin/Globulin Ratio 0.65 10/25/19 Range/Units 06:08 WBC 10.0 (5.0-10.0) 10^3/uL RBC 4.45 (4.2-5.4) 10^6/uL Hgb 13.0 (12.0-16.0) g/dL Hct 38.4 (37.0-47.0) % MCV 86.3 (80-100) fL MCH 29.2 (27.0-34.0) pg MCHC 33.9 (33.0-35.0) g/dL Plt Count 284 (150-450) 10^3/uL Sodium (135-145) mmol/L Potassium (3.6-5.0) mmol/L Chloride (101-111) mmol/L Carbon Dioxide (21.0-31.0) mmol/L Anion Gap BUN (7-18) mg/dL Creatinine (0.6-1.3) mg/dL Est Cr Clr Drug Dosing mL/min Estimated GFR (MDRD) BUN/Creatinine Ratio Glucose (74-105) mg/dL Calcium (8.4-10.2) mg/dl Magnesium (1.8-2.5) mg/dL Total Bilirubin (0.2-1.0) mg/dL AST (10-42) IU/L ALT (10-60) IU/L Alkaline Phosphatase (42-121) IU/L Total Protein (6.7-8.2) g/dl Albumin (3.2-5.5) g/dl Globulin Albumin/Globulin Ratio Med Orders - Current: Current Medications Acetaminophen (Tylenol) 650 mg PO Q6H PRN PRN Reason: mild pain or fever Carboprost Tromethamine (Hemabate Ds) 250 mcg IM ONETIME PRN PRN Reason: Bleeding Diphenhydramine HCl (Benadryl) 25 mg IVPUSH Q6H PRN PRN Reason: Itching or Nausea Last Admin: 08/28/19 04:12 Dose: 25 mg Docusate Sodium (Colace) 100 mg PO Q12H PRN PRN Reason: Constipation Last Admin: 08/28/19 12:58 Dose: 100 mg Ephedrine Sulfate (Ephedrine Sulfate) 5 mg IVPUSH SEECOMMENT PRN PRN Reason: Other Hydralazine HCl (Apresoline) 10 mg IVPUSH Q4H PRN PRN Reason: Hypertension Last Admin: 08/29/19 05:30 Dose: 10 mg Hydralazine HCl (Apresoline) 50 mg PO Q6H [facility] Magnesium Sulfate 2 gm/ Premix 50 mls @ 25 mls/hr IV ONETIME PRN PRN Reason: blood pressure Tranexamic Acid 1,000 mg/ (Sodium Chloride) 110 mls @ 660 mls/hr IV ONETIME PRN PRN Reason: Bleeding Tranexamic Acid 1,000 mg/ (Sodium Chloride) 110 mls @ 660 mls/hr IV ONETIME PRN PRN Reason: Bleeding Lactated Ringer's (Ringers, Lactated) 1,000 mls @ 125 mls/hr IV ASDIRECTED [facility] Last Admin: 08/28/19 20:06 Dose: 25 mls/hr Magnesium Sulfate (Magnesium Sulfate In Water Premix) 20 gm in 500 mls @ 50 mls /hr IV TITRATE [facility] Last Admin: 08/29/19 06:46 Dose: 50 mls/hr Ibuprofen (Motrin) 800 mg PO Q8H PRN PRN Reason: mild pain or fever Last Admin: 08/29/19 05:14 Dose: 800 mg Methylergonovine Maleate (Methergine) 0.2 mg IM ONETIME PRN PRN Reason: Excessive Vaginal Bleeding Misoprostol (Cytotec) 800 mcg RECTAL ASDIRECTED PRN PRN Reason: Excessive bleeding Naloxone HCl (Narcan) 0.1 mg IVPUSH SEECOMMENT PRN PRN Reason: Respiratory Depression Ondansetron HCl (Zofran) 4 mg IV Q4H PRN PRN Reason: Nausea/Vomiting Oxycodone/Acetaminophen (Percocet 325-5 Mg) 1 tab PO Q4H PRN PRN Reason: Pain (moderate 4-6) Oxycodone/Acetaminophen (Percocet 325-5 Mg) 2 tab PO Q4H PRN PRN Reason: Pain (moderate 4-6) Prenat Multivit/[place]/Iron/Folic Ac ( Plus Iron) 1 each PO DAILY [facility] Last Admin: 08/28/19 13:03 Dose: 1 each Simethicone (Simethicone) 160 mg PO QID [facility] Last Admin: 08/28/19 20:40 Dose: 160 mg Sodium Chloride (Saline Flush) 10 ml FLUSH ASDIRECTED PRN PRN Reason: Keep Vein Open Discontinued Medications Amlodipine Besylate (Norvasc) 10 mg PO DAILY [facility] Last Admin: 08/28/19 19:56 Dose: 10 mg Calcium Gluconate (Calcium Gluconate) Confirm Administered Dose 1 gm .ROUTE .STK -MED ONE Stop: 08/27/19 22:13 Citric Acid/Sodium Citrate (Bicitra Solution) 30 ml PO ONETIME ONE Stop: 08/27/19 17:06 Last Admin: 08/27/19 17:33 Dose: 30 ml Gabapentin (Neurontin) Confirm Administered Dose 100 mg .ROUTE .STK-MED ONE Stop: 08/28/19 17:49 Last Admin: 08/28/19 18:04 Dose: Not Given Hydralazine HCl (Apresoline) 25 mg PO Q6H PRN PRN Reason: Hypertension Last Admin: 08/28/19 07:41 Dose: 25 mg Hydralazine HCl (Apresoline) 10 mg IVPUSH ONETIME ONE Stop: 08/28/19 00:27 Last Admin: 08/28/19 00:42 Dose: 10 mg Hydralazine HCl (Apresoline) 25 mg PO Q6H [facility] Last Admin: 08/28/19 13:36 Dose: 25 mg Hydralazine HCl (Apresoline) 10 mg IVPUSH Q6H PRN PRN Reason: Hypertension Last Admin: 08/28/19 19:16 Dose: 10 mg Hydralazine HCl (Apresoline) 50 mg PO Q8H [facility] Last Admin: 08/29/19 03:35 Dose: 50 mg Hydrochlorothiazide (Hydrochlorothiazide) 25 mg PO DAILY [facility] Last Admin: 08/28/19 17:03 Dose: 25 mg Magnesium Sulfate 4 gm/ Premix 100 mls @ 300 mls/hr IV ONETIME ONE Stop: 08/27/19 16:23 Last Admin: 08/27/19 16:19 Dose: 300 mls/hr Magnesium Sulfate (Magnesium Sulfate In Water Premix) 20 gm in 500 mls @ 0 mls/ hr IV TITRATE [facility] Last Admin: 08/28/19 13:07 Dose: 50 mls/hr Lactated Ringer's (Ringers, Lactated) 1,000 mls @ 125 mls/hr IV ASDIRECTED [facility] Last Admin: 08/27/19 16:57 Dose: 125 mls/hr Magnesium Sulfate (Magnesium Sulfate In Water Premix) Confirm Administered Dose 50 mls @ as directed .ROUTE .STK-MED ONE Stop: 08/27/19 16:53 Last Admin: 08/27/19 16:56 Dose: 300 mls/hr Cefazolin Sodium/Dextrose 2 gm (/ Premix) 50 mls @ 100 mls/hr IV ONETIME ONE Stop: 08/27/19 17:34 Last Admin: 08/27/19 17:45 Dose: 100 mls/hr Oxytocin/Sodium Chloride (Pitocin In Ns 30 Unit/500 Ml) 30 unit in 500 mls @ 2 mls/hr IV TITRATE [facility]; Protocol Last Titration: 08/27/19 21:34 Dose: 0 mls/hr Lactated Ringer's (Ringers, Lactated) 1,000 mls @ 125 mls/hr IV ASDIRECTED [facility] Lactated Ringer's (Ringers, Lactated) 1,000 mls @ 500 mls/hr IV .BOLUS [facility] Oxytocin/Sodium Chloride (Pitocin In Ns 30 Unit/500 Ml) Confirm Administered Dose 60 unit in 1,000 mls @ as directed .ROUTE .STK-MED ONE Stop: 08/27/19 17:31 Clindamycin Phosphate 900 mg/ (Sodium Chloride) 106 mls @ 200 mls/hr IV ONETIME ONE Stop: 08/27/19 18:29 Last Admin: 08/28/19 02:08 Dose: Not Given Oxytocin/Sodium Chloride (Pitocin In Ns 30 Unit/500 Ml) 30 unit in 500 mls @ as directed IV .STK-MED ONE Stop: 08/28/19 13:22 Magnesium Sulfate (Magnesium Sulfate In Water Premix) 20 gm in 500 mls @ 40 mls /hr IV TITRATE [facility] Stop: 08/28/19 18:38 Magnesium Sulfate (Magnesium Sulfate In Water Premix) 100 mls @ 200 mls/hr IV ONETIME ONE Stop: 08/28/19 20:18 Last Admin: 08/28/19 20:05 Dose: 200 mls/hr Ibuprofen (Motrin) 800 mg PO Q8H PRN PRN Reason: mild pain or fever Ketorolac Tromethamine (Toradol) 15 mg IVPUSH Q6H [facility] Stop: 08/28/19 12:01 Ketorolac Tromethamine (Toradol) 15 mg IVPUSH Q6H [facility] Stop: 08/28/19 13:01 Last Admin: 08/28/19 12:58 Dose: 15 mg Labetalol HCl (Normodyne) 20 mg IVPUSH ONETIME PRN; Protocol PRN Reason: blood pressure Last Admin: 08/27/19 16:13 Dose: 20 mg Labetalol HCl (Normodyne) 100 mg PO BID [facility] Lisinopril (Prinivil) 10 mg PO ONETIME ONE Stop: 08/29/19 05:26 Last Admin: 08/29/19 05:54 Dose: 10 mg
[2019-08-29] MEDS ORDERED: NIFEdipine 10 MG Cap PO ONE (09:41)
[2019-08-29] MEDS ORDERED: NIFEdipine 10 MG Cap ONE (09:53)
[2019-08-29] MEDS ORDERED: Dexamethasone 4 MG/ML SDV IV ONE (09:54)
[2019-08-29] MEDS ORDERED: Midazolam 1 MG/ML 2 ML SDV IV ONE (09:54)
[2019-08-29] MEDS ORDERED: Ketorolac 30 MG/ML SDV IVPUSH ONE (09:54)
[2019-08-29] MEDS ORDERED: Morphine PF 1 MG/ML Amp ONE (09:54)
[2019-08-29] MEDS ORDERED: Ondansetron 4 MG/2 ML SDV IV ONE (09:54)
[2019-08-29] MEDS ORDERED: Lactated Ringers 1,000 ML IV ONE (09:54)
--- NOTE | 2019-09-02 15:12 | EKG ---
08/27/2019 - MEGAN BACA - 12-lead EKG shows normal sinus rhythm with no significant ST elevation or ST depression. Nonspecific ST-T wave changes noted on lead II. OR interval of 206 and QTc of 496. No acute changes noted. [facility] /[id number]
== END 2019-08-29 09:55 | DRG 788 ==
LOC: DL.OBCHECK 15:32 → UNDOADMOB 16:19 → DL.MS 16:19 → OBSVTOIN 18:38 → DL.OB 19:21
PROVIDERS: ADMIT Family Medicine; ATTEND Family Medicine
PROC: 10D00Z1 Extraction of Products of Conception, Low, Open Approach (ICD-10-PCS; principal; 2019-08-27)
PROC: 3E02340 Introduction of Influenza Vaccine into Muscle, Percutaneous Approach (ICD-10-PCS; 2019-08-27)
DX: O14.14 Severe pre-eclampsia complicating childbirth (principal); Z37.0 Single live birth; O99.89 Other specified diseases and conditions complicating pregnancy, childbirth and the puerperium; R00.1 Bradycardia, unspecified; O26.53 Maternal hypotension syndrome, third trimester; Z3A.38 38 weeks gestation of pregnancy; O99.334 Smoking (tobacco) complicating childbirth; F17.200 Nicotine dependence, unspecified, uncomplicated; Z88.0 Allergy status to penicillin; Z23 Encounter for immunization
CPT/HCPCS: 01961; 36415; 51702; 71045; 71046; 80053; 80305-QW; 81003; 82310; 82565; 82570; 83615; 83735; 84132; 84156; 84450; 84460; 84520; 84550; 85027; 86850; 86870; 86900; 86901; 86902-91; 86920; 86922; 93005; 93306; A9270-GY; J0360; J0690; J1100; J1200; J1885; J2250; J2274; J2405; J2590; J3475; J3490; J7120